=== PATIENT | female | born 1945 | race African-American/Black ===

== ENCOUNTER 2022-11-15 09:15 | Inpatient (IN) | payer OTHER, MEDICAID ==
[~2022-11-15] VITALS: Ht 167.6 cm; Wt 83.0 kg
[2022-11-15] MEDS ORDERED: NITROGLYCERIN 0.4MG TABLET SL SL PRN (09:30)
[2022-11-15] MEDS ORDERED: ASPIRIN 81MG TABLET PO ONE (09:30)
[2022-11-15 10:25] LABS: BASOPHILS % 2.3 % (0.0-2.0); EOSINOPHILS % 7.6 % (0.0-5.0); HEMATOCRIT. 37.7 % (36.0-48.0); LYMPHOCYTES % 31.8 % (20.0-50.0); MEAN CORPUSCULAR HEMOGLOBIN 24.3 pg (28.0-32.0); MEAN CORPUSCULAR VOLUME 76.2 fL (81.0-99.0); MEAN PLATELET VOLUME 8.6 fl (7.4-10.4); MONOCYTES % 9.9 % (2.0-8.0); NEUTROPHILS % 48.4 % (40.0-76.0); PLATELET 302 x1000/uL (130-400); RED BLOOD CELL COUNT 4.95 mill/uL (4.2-5.4); RED CELL DISTRIBUTION WIDTH 15.9 % (11.6-14.6)
[2022-11-15 10:32] LABS: CHLORIDE 101 mEq/L (98-107)
[2022-11-15] MEDS ORDERED: ASPIRIN 81MG TABLET PO NR (11:15)
[2022-11-15] MEDS ORDERED: LEVOFLOXACIN 750MG PREMIX 150 ML IV NR (11:15)
[2022-11-15] MEDS ORDERED: DOCUSATE SODIUM 100MG CAPSULE PO PRN (16:15)
[2022-11-15] MEDS ORDERED: GUAIFENESIN 200MG/10ML SUGAR FREE UDC PO PRN (16:15)
[2022-11-15] MEDS ORDERED: ACETAMINOPHEN 325MG TABLET PO PRN (16:15)
[2022-11-15] MEDS ORDERED: CLONIDINE 0.1MG TABLET PO PRN (16:15)
[2022-11-15] MEDS ORDERED: IPRATROPIUM/ALBUTEROL 0.5-3(2.5)MG/3ML NEB HHN PRN (16:15)
[2022-11-15] MEDS ORDERED: ALBUTEROL (0.083%) 2.5MG/3ML NEB HHN PRN (16:30)
[2022-11-15] MEDS ORDERED: IPRATROPIUM BROMIDE (0.02%) 0.5MG/2.5ML NEB HHN PRN (16:30)
[2022-11-15 16:52] VITALS: BP 140/77
[2022-11-15 17:09] VITALS: BP 140/77
[2022-11-15] MEDS ORDERED: ASPI-1497 PO (17:20)
[2022-11-15] MEDS ORDERED: LISI20TA31 PO (17:23)
[2022-11-15] MEDS ORDERED: METO-396 PO (17:23)
[2022-11-15] MEDS ORDERED: ROSU20TA2 PO (17:23)
[2022-11-15] MEDS ORDERED: ANAS1TAB49 PO (17:23)
[2022-11-15 17:38] LABS: FOLIC ACID (FOLATE) SERUM 19.4 ng/mL (>5.38)
[2022-11-15] MEDS: ENOXAPARIN 40MG/0.4ML SYR SUBCUT SCH (17:40)
[2022-11-15 20:00] VITALS: BP 150/90
[2022-11-16] VITALS (7 sets, daily range): BP systolic 119–146; BP diastolic 60–87
[2022-11-16 00:29] LABS: PHOSPHORUS 3.1 mg/dL (2.5-4.9)
[2022-11-16 00:32] LABS: CREATINE KINASE MB FRACTION 1.1 ng/mL (0.5-3.6)
[2022-11-16 00:52] LABS: CLARITY URINE CLEAR (CLEAR); COLOR URINE YELLOW (YELLOW); KETONES URINE NEGATIVE (NEGATIVE); LEUKOCYTE ESTERASE URINE 1+ (NEGATIVE); NITRITE URINE NEGATIVE (NEGATIVE); OCCULT BLOOD URINE NEGATIVE (NEGATIVE); PH URINE 5.5 (4.5-8.0); PROTEIN URINE NEGATIVE (NEGATIVE); SPECIFIC GRAVITY URINE 1.011 (1.005-1.030); UROBILINOGEN URINE 0.2 E.U./dL (0.2-1.0)
[2022-11-16 01:12] LABS: *AMPHETAMINES SCREEN URINE NEGATIVE (NEGATIVE); *BARBITURATES SCREEN URINE NEGATIVE (NEGATIVE); *BENZODIAZEPINES SCREEN URINE NEGATIVE (NEGATIVE); *COCAINE SCREEN URINE NEGATIVE (NEGATIVE); CANNABINOID URINE SCREEN NEGATIVE (NEGATIVE); METHADONE URINE SCREEN NEGATIVE (NEGATIVE); OPIATES URINE SCREEN PRESUMTIVE POSITIVE (NEGATIVE); PHENCYCLIDINE URINE SCREEN NEGATIVE (NEGATIVE)
[2022-11-16 01:26] LABS: D-DIMER 1.83 mg/L FEU (<0.50); INR 1.1; PROTHROMBIN TIME 11.4 sec (9.6-11.0)
[2022-11-16 06:54] LABS: BASOPHILS % 2.2 % (0.0-2.0); EOSINOPHILS % 5.6 % (0.0-5.0); HEMATOCRIT. 36.7 % (36.0-48.0); HEMOGLOBIN. 12.3 g/dL (12.0-16.0); LYMPHOCYTES % 25.1 % (20.0-50.0); MEAN CORPUSCULAR VOLUME 74.9 fL (81.0-99.0); MEAN PLATELET VOLUME 8.3 fl (7.4-10.4); NEUTROPHILS % 56.1 % (40.0-76.0); PLATELET 275 x1000/uL (130-400); RED CELL DISTRIBUTION WIDTH 15.9 % (11.6-14.6)
[2022-11-16 07:07] LABS: CHLORIDE 102 mEq/L (98-107)
[2022-11-16 07:25] LABS: CREATINE KINASE 137 IU/L (26-192); CREATINE KINASE MB FRACTION < 1.0 ng/mL (0.5-3.6); HDL CHOLESTEROL 39 mg/dL (40-59); LDL CHOLESTEROL 112 mg/dL (5-100)
[2022-11-16] MEDS ORDERED: DEXTROSE 50% WATER 50ML SYRINGE IV PRN (08:30)
[2022-11-16] MEDS: ASPIRIN 81MG EC TABLET PO SCH (09:22)
[2022-11-16] MEDS: BLOOD SUGAR DIAGNOSTIC STRIP TEST SCH ×3 (11:50→21:27)
[2022-11-16] MEDS: METOPROLOL SUCCINATE 50MG ER TABLET PO SCH ×2 (13:02→21:00)
[2022-11-16] MEDS: LISINOPRIL 20MG TABLET PO SCH (13:02)
[2022-11-16] MEDS: INSULIN LISPRO 100 UNITS/ML SUBCUT SCH ×3 (13:03→21:00)
[2022-11-16] MEDS: ENOXAPARIN 40MG/0.4ML SYR SUBCUT SCH (17:37)
[2022-11-16] MEDS: ANASTROZOLE 1 MG TABLET PO SCH (17:38)
[2022-11-16 19:47] LABS: BASOPHILS % 1.5 % (0.0-2.0); EOSINOPHILS % 5.1 % (0.0-5.0); HEMOGLOBIN. 12.4 g/dL (12.0-16.0); LYMPHOCYTES % 30.5 % (20.0-50.0); MEAN CORPUSCULAR HEMOGLOBIN 24.5 pg (28.0-32.0); MEAN CORPUSCULAR VOLUME 76.7 fL (81.0-99.0); MEAN PLATELET VOLUME 8.7 fl (7.4-10.4); MONOCYTES % 11.5 % (2.0-8.0); NEUTROPHILS % 51.4 % (40.0-76.0); PLATELET 304 x1000/uL (130-400); RED BLOOD CELL COUNT 5.08 mill/uL (4.2-5.4); RED CELL DISTRIBUTION WIDTH 16.2 % (11.6-14.6)
[2022-11-16] MEDS ORDERED: MEDICATION NOT ON FORMULARY EA (Rosuvastatin Calcium (Crestor) 20 MG) PO SCH (21:00)
[2022-11-16] MEDS: ATORVASTATIN CALCIUM 40MG TABLET PO SCH (21:45)
[2022-11-17] VITALS (7 sets, daily range): BP systolic 101–150; BP diastolic 60–78
[2022-11-17] MEDS: BLOOD SUGAR DIAGNOSTIC STRIP TEST SCH ×4 (06:30→20:25)
[2022-11-17] MEDS: LISINOPRIL 20MG TABLET PO SCH (08:20)
[2022-11-17] MEDS: ASPIRIN 81MG EC TABLET PO SCH (08:20)
[2022-11-17] MEDS: METOPROLOL SUCCINATE 50MG ER TABLET PO SCH ×2 (08:21→20:41)
[2022-11-17] MEDS: ANASTROZOLE 1 MG TABLET PO SCH (08:21)
[2022-11-17] MEDS: INSULIN LISPRO 100 UNITS/ML SUBCUT SCH ×4 (08:24→20:43)
[2022-11-17 11:58] LABS: HEMATOCRIT 37.7 % (36.0-48.0); HEMOGLOBIN 12.6 g/dL (12.0-16.0); MEAN CORPUSCULAR VOLUME 75.1 fL (81.0-99.0); PLATELET 316 x1000/uL (130-400); RED BLOOD CELL COUNT 5.02 mill/uL (4.2-5.4)
[2022-11-17 12:10] LABS: CHLORIDE 104 mEq/L (98-107)
[2022-11-17 12:21] LABS: T4 FREE 0.89 ng/dL (0.76-1.46)
[2022-11-17] MEDS: ENOXAPARIN 40MG/0.4ML SYR SUBCUT SCH (17:36)
[2022-11-17] MEDS: ATORVASTATIN CALCIUM 40MG TABLET PO SCH (20:42)
[2022-11-18] MEDS ORDERED: METOPROLOL TARTRATE 5MG/5ML VIAL IV NR (07:00)
== END 2022-11-17 22:40 | disposition short-term general hospital (02) | DRG 313 ==
LOC: ER 09:15 → MICUSO 12:33 → 3WST 16:27
PROVIDERS: ADMIT Internal Medicine; ATTEND Internal Medicine
DX: R07.89 Other chest pain (principal); E11.9 Type 2 diabetes mellitus without complications; I10 Essential (primary) hypertension; E78.5 Hyperlipidemia, unspecified; Z20.822 Contact with and (suspected) exposure to COVID-19; Z66 Do not resuscitate; Z79.899 Other long term (current) drug therapy; Z85.3 Personal history of malignant neoplasm of breast; Z88.0 Allergy status to penicillin; Z90.710 Acquired absence of both cervix and uterus
CPT/HCPCS: 36415; 71045; 80048; 80053; 80061; 80305; 81003; 82550; 82553; 82607; 82652; 82746; 82962; 83036; 83735; 83880; 84100; 84439; 84443; 84481; 84484; 85025; 85027; 85379; 87426; 93005; 93306; 93970; 97162; 97166; 99285; J1650; J1815; J1956